=== PATIENT | male | born 1955 | race Caucasian/White ===

== ENCOUNTER 2018-07-17 09:06 | Inpatient (IN) | payer MEDICAID | END 2018-07-21 15:49 | disposition home or self-care (01) | LOC: ER 09:06 → OVERFLOW 10:50 → EAST 15:13 | DX: J44.1 Chronic obstructive pulmonary disease with (acute) exacerbation (principal); E43 Unspecified severe protein-calorie malnutrition; E87.1 Hypo-osmolality and hyponatremia ==

== ENCOUNTER 2020-03-15 20:58 | Emergency (ER) | payer MEDICAID ==
[~2020-03-15] VITALS: Ht 172.7 cm; Wt 68.0 kg
[2020-03-15] MEDS ORDERED: IPRATROPIUM BROM 0.5 MG/2.5ML INH SOL NEB ONE (21:45)
[2020-03-15] MEDS ORDERED: ALBUTEROL SULF 2.5 MG/0.5ML(0.5%) NEB SOLN NEB ONE (21:45)
[2020-03-15] MEDS ORDERED: methylPREDNISolone SOD SUCC 125 MG/2 ML VL IV ONE (22:00)
[2020-03-15 22:20] LABS: Basophils # (auto) 0 10 ^3/uL (0-0.2); Basophils % (auto) 0.5 % (0.0-2.0); Eosinophils # (auto) 0.2 10 ^3/uL (0-0.8); Eosinophils % (auto) 1.9 % (0.0-7.0); Hemoglobin 16.7 g/dL (13.5-17.5); Lymphocytes # (auto) 1.9 10 ^3/uL (0.4-5.4); Mean Corpuscular Hemoglobin 33.3 pg (28.0-32.0); Mean Corpuscular Hgb Conc. 34.1 g/dL (32.0-36.0); Mean Corpuscular Volume 97.8 fL (80.0-100.0); Monocytes # (auto) 0.8 10 ^3/uL (0-1.3); Monocytes % (auto) 9.8 % (0.0-12.0); Neutrophils # (auto) 5.1 10 ^3/uL (1.6-8.6); Neutrophils % (auto) 63.8 % (37.0-80.0); Nucleated Red Blood Cells % 0.1 %; Platelet Count (auto) 223 10^3/uL (140-450); Red Blood Cells 5.01 10^6/uL (4.5-5.90); Red Cell Distribution Width 13.4 % (11.8-14.3)
[2020-03-15 22:25] LABS: INR 1.07 (0.9-1.15)
[2020-03-15 22:25] LABS: Urine WBC None Seen /hpf (0 - 3)
[2020-03-15 22:40] LABS: Chloride 90 mmol/L (98-107); Potassium 3.9 mmol/L (3.5-5.1); Sodium 122 mmol/L (136-145)
[2020-03-15 22:46] LABS: Alanine Aminotransferase 19 U/L (16-61); Alkaline Phosphatase 128 U/L (45-117); Anion Gap 7 (5-15); Aspartate Aminotransferase 18 U/L (15-37); BUN/Creatinine Ratio 8.2; Bilirubin, Total 0.5 mg/dL (0.2-1.0); Blood Urea Nitrogen 5 mg/dL (7-18); Calcium 8.3 mg/dL (8.5-10.1); Carbon Dioxide 25 mmol/L (21-32); GFR African American 171 mL/min; GFR Non-African American 141 mL/min; Glucose 81 mg/dL (74-106); Total Protein 6.8 g/dL (6.4-8.2)
[2020-03-15 22:51] LABS: Urine Bacteria NONE SEEN /hpf (None Seen); Urine Blood Negative /uL (Negative); Urine Specific Gravity 1.004 (1.001-1.035)
[2020-03-16] MEDS ORDERED: IOHEXOL 350 MG/ML 100ML IJ ONE (01:58)
[2020-03-16 06:23] VITALS: BP 136/78
== END 2020-03-16 06:26 | disposition home or self-care (01) ==
LOC: EDBD 20:58 → ER 21:05
DX: J20.9 Acute bronchitis, unspecified (principal); J44.0 Chronic obstructive pulmonary disease with (acute) lower respiratory infection; K21.0 Gastro-esophageal reflux disease with esophagitis; R79.89 Other specified abnormal findings of blood chemistry; R07.89 Other chest pain; F17.210 Nicotine dependence, cigarettes, uncomplicated
CPT/HCPCS: 36415; 71045; 71275; 80053; 81001; 83880; 84484; 85025; 85379; 85610; 93005; 94640; 96374; 99285; J2930; J7644; Q9967

== ENCOUNTER 2020-03-26 17:34 | Emergency (ER) | payer MEDICAID ==
[~2020-03-26] VITALS: Ht 165.1 cm; Wt 65.8 kg
[2020-03-26 21:19] VITALS: BP 148/97
== END 2020-03-26 21:29 | disposition home or self-care (01) ==
LOC: ER 17:34
DX: B02.9 Zoster without complications (principal); L29.9 Pruritus, unspecified

== ENCOUNTER 2021-01-07 23:20 | Emergency (ER) | payer MEDICAID ==
[~2021-01-07] VITALS: Ht 172.7 cm; Wt 68.0 kg
[2021-01-08 00:40] LABS: Alanine Aminotransferase 19 U/L (16-61); Albumin 3.1 g/dL (3.4-5.0); Anion Gap 3 (5-15); Aspartate Aminotransferase 15 U/L (15-37); BUN/Creatinine Ratio 5.5; Blood Urea Nitrogen 4 mg/dL (7-18); Calcium 8.5 mg/dL (8.5-10.1); Carbon Dioxide 31 mmol/L (21-32); Chloride 104 mmol/L (98-107); GFR African American 139 mL/min; GFR Non-African American 115 mL/min; Glucose 80 mg/dL (74-106); Magnesium 2.1 mg/dL (1.6-2.6); Potassium 4.3 mmol/L (3.5-5.1); Sodium 138 mmol/L (136-145)
[2021-01-08 00:45] LABS: Alkaline Phosphatase 144 U/L (45-117); Bilirubin, Total 0.2 mg/dL (0.2-1.0); Nucleated Red Blood Cells % 0.1 %; Total Protein 7.1 g/dL (6.4-8.2)
[2021-01-08 00:46] LABS: Basophils # (auto) 0.1 10 ^3/uL (0-0.2); Basophils % (auto) 1.1 % (0.0-2.0); Eosinophils # (auto) 0.3 10 ^3/uL (0-0.8); Eosinophils % (auto) 3.1 % (0.0-7.0); Hematocrit 51.2 % (41.0-53.0); Hemoglobin 17.8 g/dL (13.5-17.5); Lymphocytes # (auto) 2.5 10 ^3/uL (0.4-5.4); Lymphocytes % (auto) 30.9 % (10.0-50.0); Mean Corpuscular Hemoglobin 34.3 pg (28.0-32.0); Mean Corpuscular Hgb Conc. 34.8 g/dL (32.0-36.0); Mean Corpuscular Volume 98.4 fL (80.0-100.0); Monocytes # (auto) 0.9 10 ^3/uL (0-1.3); Monocytes % (auto) 11.2 % (0.0-12.0); Neutrophils # (auto) 4.4 10 ^3/uL (1.6-8.6); Neutrophils % (auto) 53.7 % (37.0-80.0); Platelet Count (auto) 246 10^3/uL (140-450); Red Blood Cells 5.21 10^6/uL (4.5-5.90); Red Cell Distribution Width 13.3 % (11.8-14.3); White Blood Cell 8.2 10^3/uL (4.4-10.8)
[2021-01-08] MEDS ORDERED: cloNIDine HCL 0.1 MG TAB PO ONE (06:30)
[2021-01-08 07:55] VITALS: BP 142/94
== END 2021-01-08 08:13 | disposition home or self-care (01) ==
LOC: EDBD 23:20 → ER 23:20
DX: I16.0 Hypertensive urgency (principal); F17.210 Nicotine dependence, cigarettes, uncomplicated; M19.90 Unspecified osteoarthritis, unspecified site; I10 Essential (primary) hypertension; Z90.89 Acquired absence of other organs; Z88.8 Allergy status to other drugs, medicaments and biological substances; Z88.2 Allergy status to sulfonamides
CPT/HCPCS: 36415; 71045; 80053; 83735; 83880; 84484; 85025; 85049; 93005